=== PATIENT | male | born 1990 | race Caucasian/White ===

== ENCOUNTER 2020-04-25 18:13 | Emergency (ER) | payer BC, OTHER ==
[~2020-04-25] VITALS: Ht 195.5 cm; Wt 153.3 kg
[2020-04-25] MEDS ORDERED: ONDANSETRON 4 MG (ZOFRAN) ORAL DISSOLVE TAB SL STA (18:24)
--- NOTE | 2020-04-25 18:24 | ED General ---
General Chief Complaint: Cough/Cold/Flu Symptoms Stated Complaint: COUGHING,FEVER,VOMTING,DIARRHEA Source of Information: Patient Exam Limitations: No Limitations History of Present Illness Date Seen by Provider: Apr 25, 2020 Time Seen by Provider: 18:24 Initial Comments 29-year-old male presents with a chronic cough with allergies. He presents today because he's got some vomiting diarrhea low-grade fever. Patient reports that yesterday he started having some runny diarrhea had one episode of vomiting. Other today he went to [facility] and had a rapid COVID test was negative. He comes in today because he started having some more episodes of diarrhea and some nausea. He does report a low-grade fever. He has no other known sick contacts. Allergies and Home Medications Allergies Coded Allergies: No Known Drug Allergies (Unverified , 04/25/20) Patient Home Medication List Home Medication List Reviewed: Yes Review of Systems Review of Systems Constitutional: fever, malaise Respiratory: cough (chronic) Cardiovascular: No chest pain, No edema Gastrointestinal: No abdominal pain; diarrhea, nausea, vomiting Genitourinary: no symptoms reported Musculoskeletal: no symptoms reported Skin: no symptoms reported Psychiatric/Neurological: No Symptoms Reported Hematologic/Lymphatic: No Symptoms Reported Immunological/Allergic: no symptoms reported Past Movgkdy-Yqcijo-Smzhqc Hx Past Med/Social Hx: Reviewed Nursing Past Med/Soc Hx Patient Social History Recent Foreign Travel: No Contact w/Someone Who Travel: No Physical Exam Vital Signs Capillary Refill : Height, Weight, BMI Height: '" Weight: lbs. oz. kg; BMI Method: General Appearance: No Apparent Distress, WD/WN Respiratory: No Accessory Muscle Use, No Respiratory Distress Cardiovascular: Regular Rate, Rhythm, No Edema Gastrointestinal: Non Tender, Soft Extremity: Normal Capillary Refill Neurologic/Psychiatric: Alert, Oriented x3, Normal Mood/Affect, injection press operator II-XII Norm as Tested Skin: Normal Color, Warm/Dry Progress/Results/Core Measures Suspected Sepsis SIRS Temperature: Pulse: Respiratory Rate: Blood Pressure / Mean: Results/Orders Vital Signs/I&O Capillary Refill : Progress Note : Time: 18:28 Progress Note Patient with known negative COVID test from earlier today. Discussed with angela trotter this likely just that viral gastroenteritis. I did offer him labs and further evaluation however at this time he declined. I do feel that appropriate. I will give him some Zofran a prescription for Zofran. His symptoms continue more than 4-5 days he should follow-up with his primary care provider for further evaluation. Discussed hydration tragedies with him. Patient stable will be discharged home Departure Impression Primary Impression: Viral gastroenteritis Disposition: HOME, SELF-CARE Condition: Stable Departure-Patient Inst. Patient Instructions: Diarrhea in Adolescents and Adults, VIRAL SYNDROME, Viral Gastroenteritis Scripts Ondansetron (Ondansetron Odt) 4 Mg Tab.rapdis 4 MG PO Q6H PRN for NAUSEA/VOMITING, #30 TAB 0 Refills Prov: HOMAR ROSENBERG DO 04/25/20 HOMAR ROSENBERG DO Apr 25, 2020 18:24
[2020-04-25] MEDS ORDERED: ONDA4TAB11 PO (18:30)
[2020-04-25 18:40] VITALS: BP 157/99
== END 2020-04-25 18:34 | disposition home or self-care (01) ==
LOC: ER FS 18:15
DX: A08.4 Viral intestinal infection, unspecified (principal); Z20.828 Contact with and (suspected) exposure to other viral communicable diseases
CPT/HCPCS: 99283

== ENCOUNTER 2021-03-23 00:47 | Emergency (ER) | payer BC ==
[~2021-03-23] VITALS: Ht 195.5 cm; Wt 145.0 kg
[~2021-03-23 00:47] MED LIST: ONDA4TAB11 PO
[2021-03-23 00:48] VITALS: BP 151/96
--- NOTE | 2021-03-23 00:57 | ED Cough/URI ---
General Stated Complaint: COVID + History of Present Illness Date Seen by Provider: Mar 23, 2021 Time Seen by Provider: 00:55 Initial Comments 30-year-old male presents with shortness of breath, cough. Patient is positive for Covid. Patient symptoms started around 03/17/2021. Reports that his symptoms began worse over the last couple days. Patient reports that his chest solorzano hurt from coughing and just wants to be evaluated. He denies any fevers or chills. He does have some quite a bit of fatigue. Allergies and Home Medications Allergies Coded Allergies: No Known Drug Allergies (Unverified , 04/25/20) Home Medications Benzonatate 100 Mg Capsule, 100 MG PO TID Prescribed by: HOMAR ROSENBERG on 03/23/21 0115 Ondansetron 4 Mg Tab.rapdis, 4 MG PO Q6H PRN for NAUSEA/VOMITING Prescribed by: HOMAR ROSENBERG on 04/25/20 1830 Patient Home Medication List Home Medication List Reviewed: Yes Review of Systems Review of Systems Constitutional: No chills, No fever; malaise EENTM: no symptoms reported Respiratory: cough, short of breath Cardiovascular: see HPI Gastrointestinal: No diarrhea, No nausea, No vomiting Musculoskeletal: no symptoms reported Skin: no symptoms reported Psychiatric/Neurological: No Symptoms Reported Hematologic/Lymphatic: No Symptoms Reported Immunological/Allergic: no symptoms reported Past Idxvjqd-Nccsce-Rhpzrr Hx Seasonal Allergies Seasonal Allergies: Yes Past Medical History Surgeries: No Respiratory: No Cardiac: No Neurological: No Genitourinary: No Gastrointestinal: No Musculoskeletal: No Endocrine: No HEENT: No Cancer: No Psychosocial: No Integumentary: No Blood Disorders: No Physical Exam Vital Signs - First Documented 03/23/21 00:48 Temp 37.4 Pulse 117 Resp 20 B/P (MAP) 151/96 (114) Pulse Ox 93 O2 Delivery Room Air Capillary Refill : Height: '" Weight: lbs. oz. kg; 40.00 BMI Method: General Appearance: obese HEENT: PERRL/EOMI Respiratory: lungs clear, normal breath sounds Cardiovascular: normal peripheral pulses, tachycardia Gastrointestinal: non tender, soft Neurologic/Psychiatric: alert, normal mood/affect, oriented x 3 Skin: normal color, warm/dry Progress/Results/Core Measures Suspected Sepsis SIRS Temperature: Pulse: Respiratory Rate: Laboratory Tests 03/23/21 00:58: White Blood Count 4.8 Blood Pressure / Mean: Laboratory Tests 03/23/21 00:58: Creatinine 1.04, Platelet Count 187, Total Bilirubin 0.3 Results/Orders Lab Results Laboratory Tests Test 03/23/21 00:58 Range/Units White Blood Count 4.8 4.3-11.0 10^3/uL Red Blood Count 5.41 4.30-5.52 10^6/uL Hemoglobin 16.3 13.3-17.7 g/dL Hematocrit 48 40-54 % Mean Corpuscular Volume 88 80-99 fL Mean Corpuscular Hemoglobin 30 25-34 pg Mean Corpuscular Hemoglobin Concent 34 32-36 g/dL Red Cell Distribution Width 12.8 10.0-14.5 % Platelet Count 187 130-400 10^3/uL Mean Platelet Volume 10.4 9.0-12.2 fL Immature Granulocyte % (Auto) 0 % Neutrophils (%) (Auto) 42 42-75 % Lymphocytes (%) (Auto) 44 12-44 % Monocytes (%) (Auto) 12 0-12 % Eosinophils (%) (Auto) 1 0-10 % Basophils (%) (Auto) 0 0-10 % Neutrophils # (Auto) 2.0 1.8-7.8 X 10^3 Lymphocytes # (Auto) 2.1 1.0-4.0 X 10^3 Monocytes # (Auto) 0.6 0.0-1.0 X 10^3 Eosinophils # (Auto) 0.1 0.0-0.3 10^3/uL Basophils # (Auto) 0.0 0.0-0.1 10^3/uL Immature Granulocyte # (Auto) 0.0 0.0-0.1 10^3/uL D-Dimer 0.51 H 0.00-0.49 UG/ML Sodium Level 139 135-145 MMOL/L Potassium Level 3.8 3.6-5.0 MMOL/L Chloride Level 105 98-107 MMOL/L Carbon Dioxide Level 22 21-32 MMOL/L Anion Gap 12 5-14 MMOL/L Blood Urea Nitrogen 10 7-18 MG/DL Creatinine 1.04 0.60-1.30 MG/DL Estimat Glomerular Filtration Rate 85 BUN/Creatinine Ratio 10 Glucose Level 115 H 70-105 MG/DL Calcium Level 8.8 8.5-10.1 MG/DL Corrected Calcium 8.7 8.5-10.1 MG/DL Total Bilirubin 0.3 0.1-1.0 MG/DL Aspartate Amino Transf (AST/SGOT) 36 H 5-34 U/L Alanine Aminotransferase (ALT/SGPT) 42 0-55 U/L Alkaline Phosphatase 96 40-136 U/L Total Protein 7.2 6.4-8.2 GM/DL Albumin 4.1 3.2-4.5 GM/DL My Orders Orders - HOMAR ROSENBERG DO Cbc With Automated Diff (03/23/21 00:57) Comprehensive Metabolic Panel (03/23/21 00:57) Fibrin Degradation Products (03/23/21 00:57) Chest 1 View Ap/Pa Only (03/23/21 00:57) Ekg Tracing (03/23/21 00:57) Ed Iv/Invasive Line Start (03/23/21 01:00) Benzonatate Capsule (Tessalon Perles) (03/23/21 01:15) Vital Signs/I&O 03/23/21 00:48 Temp 37.4 Pulse 117 Resp 20 B/P (MAP) 151/96 (114) Pulse Ox 93 O2 Delivery Room Air Capillary Refill : Progress Note : Progress Note Patient O2 saturations in the mid 90s. Patient with negative chest x-ray. Patient's D-dimer is 0.51 at this time will feel a CTA is indicated recommend he take a daily aspirin. Due to his elevated BMI, patient is a candidate for a Regeneron so I did submit an order for that. Patient was provided information Regeneron. He should return to the ER if he continues to have increasing shortness of breath, or chest pain patient is discharged home in stable condition ECG Initial ECG Impression Date: Mar 23, 2021 Initial ECG Impression Time: 01:02 Initial ECG Rate: 97 Initial ECG Rhythm: Normal Sinus Diagnostic Imaging Diagonstic Imaging: Xray Plain Films/CT/US/NM/MRI: chest Comments negative chest Reviewed: Reviewed by Me, Reviewed/Discussed Departure Impression Primary Impression: COVID-19 Disposition: 01 HOME, SELF-CARE Condition: Stable Departure-Patient Inst. Referrals: ERIKA WEINER [employer] FACILITATOR (PCP/Family) Primary Care Physician Patient Instructions: REGEN-COV (casirivimab and imdevimab) FDA Fact Sheet, COVID-19 Tests Add. Discharge Instructions: Monitor your home oxygenation, if it gets below 91-92 please follow with your primary care provider or return to the ER for further evaluation If you have increasing shortness of breath and chest pain please return to the ER for further evaluation Scripts Benzonatate (Tessalon Perle) 100 Mg Capsule 100 MG PO TID, #15 CAP Prov: HOMAR ROSENBERG DO 03/23/21 HOMAR ROSENBERG DO Mar 23, 2021 00:57
[2021-03-23 01:04] LABS: BASOPHILS % (AUTO) 0 % (0-10); EOSINOPHILS # (AUTO) 0.1 10^3/uL (0.0-0.3); EOSINOPHILS % (AUTO) 1 % (0-10); HEMATOCRIT 48 % (40-54); HEMOGLOBIN 16.3 g/dL (13.3-17.7); LYMPHOCYTES # (AUTO) 2.1 X 10^3 (1.0-4.0); LYMPHOCYTES % (AUTO) 44 % (12-44); MEAN CORPUSCULAR HEMOGLOBIN 30 pg (25-34); MEAN CORPUSCULAR HGB CONC 34 g/dL (32-36); MEAN CORPUSCULAR VOLUME 88 fL (80-99); MEAN PLATELET VOLUME 10.4 fL (9.0-12.2); MONOCYTES # (AUTO) 0.6 X 10^3 (0.0-1.0); MONOCYTES % (AUTO) 12 % (0-12); NEUTROPHILS % (AUTO) 42 % (42-75); PLATELET COUNT 187 10^3/uL (130-400); WHITE BLOOD COUNT 4.8 10^3/uL (4.3-11.0)
[2021-03-23] MEDS ORDERED: BENZ-13 PO (01:15)
[2021-03-23] MEDS ORDERED: BENZONATATE 100 MG (TESSALON) CAPSULE PO SCH (01:15)
[2021-03-23 01:26] LABS: POTASSIUM 3.8 MMOL/L (3.6-5.0)
[2021-03-23 01:27] LABS: ALBUMIN 4.1 GM/DL (3.2-4.5); BILIRUBIN,TOTAL 0.3 MG/DL (0.1-1.0); CALCIUM 8.8 MG/DL (8.5-10.1); CREATININE SERUM 1.04 MG/DL (0.60-1.30); TOTAL PROTEIN 7.2 GM/DL (6.4-8.2)
--- NOTE | 2021-03-23 06:58 | Diagnostic Imaging Report ---
INDICATION: Shortness of breath. COMPARISON: No prior examinations are available for comparison. FINDINGS: The heart size is normal. There are questionable patchy bibasilar infiltrates. There is no pleural effusion or pneumothorax. The mediastinum is unremarkable. IMPRESSION: Questionable patchy bibasilar pulmonary infiltrates, otherwise unremarkable. Dictated by: Dictated on workstation # [id number]
== END 2021-03-23 01:41 | disposition home or self-care (01) ==
LOC: EDUNIT# 00:47 → ER FS 00:50
DX: U07.1 COVID-19 (principal); E66.9 Obesity, unspecified; Z68.41 Body mass index [BMI] 40.0-44.9, adult
CPT/HCPCS: 36415; 71045; 80053; 85025; 85379; 93005